=== PATIENT | male | born 1950 | race Caucasian/White ===

== ENCOUNTER → 2021-05-16 | Outpatient (CLI) | payer MEDICARE, OTHER ==
[~2021-05-16] MED LIST: VISIPAQUE 320 MG/ML, 150ML BOTTLE ONE
== END | disposition home or self-care (01) ==
LOC: CVU 09:50
PROVIDERS: ATTEND Internal Medicine Cardiovascular Disease
DX: I65.21 Occlusion and stenosis of right carotid artery (principal); E78.5 Hyperlipidemia, unspecified; I35.0 Nonrheumatic aortic (valve) stenosis; I77.810 Thoracic aortic ectasia; I11.9 Hypertensive heart disease without heart failure; I70.0 Atherosclerosis of aorta
CPT/HCPCS: 36415; 71275; 74174; 82565; 93880; Q9967

== ENCOUNTER 2021-08-01 10:56 | Outpatient (CLI) | payer MEDICARE, OTHER ==
[~2021-08-01 10:56] MED LIST changes: +ACET325T26 PO; +ASPI81TA45 PO; +ATOR40TA78 PO; +CYAN2000 PO; +DONE10TA7 PO; +IBUP100T7 PO; +LISI40TA9 PO; +NITR100C PO; -VISIPAQUE 320 MG/ML, 150ML BOTTLE ONE
== END 2021-08-01 23:59 | disposition home or self-care (01) ==
LOC: CFH 10:56
PROVIDERS: ATTEND Internal Medicine Cardiovascular Disease
DX: Z01.810 Encounter for preprocedural cardiovascular examination (principal); R06.02 Shortness of breath; I35.0 Nonrheumatic aortic (valve) stenosis; I65.29 Occlusion and stenosis of unspecified carotid artery
CPT/HCPCS: 93306